=== PATIENT | male | born 2000 | race Two or more races ===

== ENCOUNTER 2024-12-01 16:14 | Emergency (ER) | payer OTHER ==
[~2024-12-01] VITALS: Ht 175.3 cm; Wt 74.8 kg
[2024-12-01] MEDS: KETOROLAC TROMETHAMINE 15 MG/ML VIAL IM ONE (17:00)
[2024-12-01] MEDS ORDERED: KETOROLAC TROMETHAMINE 15 MG/ML VIAL ONE (17:02)
[2024-12-01] MEDS ORDERED: IBUP-1490 PO (18:28)
[2024-12-01 18:43] VITALS: BP 139/80; TEMP 98.6; O2SAT 99
== END 2024-12-01 18:44 | disposition home or self-care (01) ==
LOC: ER 17:42
DX: M25.552 Pain in left hip (principal); M25.562 Pain in left knee; V43.52XA Car driver injured in collision with other type car in traffic accident, initial encounter; Y93.89 Activity, other specified; Y92.488 Other paved roadways as the place of occurrence of the external cause; Y99.8 Other external cause status
CPT/HCPCS: 99284; 96372; 73562; 73503; J1885; 73502